=== PATIENT | male | born 1990 | race African-American/Black ===

== ENCOUNTER 2018-05-31 04:55 | Emergency (ER) | payer MEDICAID, OTHER ==
[~2018-05-31] VITALS: Ht 182.9 cm; Wt 100.0 kg
[2018-05-31 05:13] VITALS: BP 184/119
== END 2018-05-31 05:41 | disposition left against medical advice (07) ==
LOC: ER 04:55
DX: M79.604 Pain in right leg (principal)
CPT/HCPCS: 99283